=== PATIENT | male | born 1945 | race Caucasian/White ===

== ENCOUNTER 2023-02-05 17:57 | Emergency (ER) | payer MEDICARE, SELFPAY ==
--- NOTE | 2023-02-05 18:02 | ED.GENADULT ---
HPI - General Adult General Chief complaint: Extremity Injury, Lower Stated complaint: Hip pain Source: patient, RN notes reviewed and old records reviewed Mode of arrival: ambulatory Limitations: no limitations History of Present Illness HPI narrative: 77-year-old male presents to [facility] with complaint of right lower buttocks pain this started night. Patient denies injury. patient states pain started after running up and down the stairs carrying heavy bags of salt. patient states pain is worse with sitting and improves with standing.Patient states pain is nonradiating patient states takes gabapentin regularly. And has been using Voltaren gel complaint: hip pain Onset (ago): day(s) (5) Related Data Home Medications Medication Instructions Recorded Confirmed amlodipine 10 mg tablet 10 mg PO DAILY 02/05/23 02/05/23 aspirin 81 mg chewable tablet 81 mg PO DAILY 02/05/23 02/05/23 chlorthalidone 50 mg tablet mg 02/05/23 clopidogrel 75 mg tablet mg 02/05/23 donepezil 5 mg tablet mg 02/05/23 empagliflozin 10 mg tablet mg 02/05/23 (Jardiance) ezetimibe 10 mg tablet mg 02/05/23 gabapentin 300 mg capsule mg 02/05/23 insulin glargine 100 unit/mL (3 unit subcut 02/05/23 mL) subcutaneous pen (Lantus Solostar U-100 Insulin) isosorbide mononitrate 30 mg mg PO 02/05/23 tablet,extended release 24 hr linaclotide 72 mcg capsule mcg 02/05/23 (Linzess) metformin 500 mg tablet,extended mg PO 02/05/23 release 24 hr nebivolol 10 mg tablet mg 02/05/23 pantoprazole 40 mg tablet,delayed mg PO 02/05/23 release rosuvastatin 5 mg tablet mg 02/05/23 tamsulosin 0.4 mg capsule mg PO 02/05/23 valacyclovir 500 mg tablet mg 02/05/23 Allergies Allergy/AdvReac Type Severity Reaction Status Date / Time No Known Allergies Allergy Verified 02/05/23 18:16 Review of Systems Constitutional: Constitutional: Reports no additional constitutional complaints Eyes: Eyes: Reports no additional eye complaints ENT: Reports system reviewed and no additional complaints, except as documented Cardiovascular: Cardiovascular: Reports no additional cardiovascular complaints Respiratory: Respiratory: Reports no additional respiratory complaints Musculoskeletal: Comments: right hip pain Neurologic: Reports system reviewed and no additional complaints, except as documented PMFSH Comments At the time of my signature, I reviewed and agree with the nursing past medical, surgical, social, and family history. There is no relevant family history pertinent to the patient complaint. Exam Const: General: cooperative, healthy appearing, no acute distress and well nourished Nutritional Appearance: well nourished Orientation/consciousness: patient oriented x3 Limitations: no limitations HENMT: Head: normal to inspection and normocephalic Ears: external ears normal, TM's normal bilaterally, mastoids normal and Abnormal EAC present Face/Nose/Sinus: normal facial exam Face and sinus: normal facial exam Mouth: Yes Normal oral and palatal mucosa present, Yes oropharynx normal and Yes moist mucous membranes Throat: posterior oropharynx normal, tonsils normal, uvula midline and no uvular edema Eyes: General: appearance normal, both eyes and all related structures Sclera: sclerae normal Pupils: Equal, round and reactive pupils present Resp: Effort & Inspection: normal respiratory effort, able to speak in complete sentences, no audible wheezes, no cough, no respiratory distress and no retractions Cardio: Rate: regular rate Back/Spine/Pelvis: Back: no CVA tenderness Other: patient with pain and tenderness and right lower buttocks. No erythema, no rash noted pain is reproducible patient has pain with movement. Skin: General skin exam: normal color and no rashes or lesions noted Rashes: no rashes Neuro: General: patient oriented x3 Cranial nerves: Yes Equal, round and reactive pupils present Psych: A
[2023-02-05 18:10] VITALS: BP 146/71; PULSE 73; RESP 18; TEMP 36.5; O2SAT 98
== END 2023-02-05 18:33 | disposition home or self-care (01) ==
PROVIDERS: Emergency Provider Registered Nurse; PCP Internal Medicine
DX: S76.011A Strain of muscle, fascia and tendon of right hip, initial encounter (principal); X50.3XXA Overexertion from repetitive movements, initial encounter; Z79.82 Long term (current) use of aspirin; E78.00 Pure hypercholesterolemia, unspecified; I10 Essential (primary) hypertension; M19.90 Unspecified osteoarthritis, unspecified site; E11.9 Type 2 diabetes mellitus without complications; I25.10 Atherosclerotic heart disease of native coronary artery without angina pectoris; Z95.5 Presence of coronary angioplasty implant and graft
CPT/HCPCS: 99213; G0463

== ENCOUNTER 2023-04-04 09:55 | Emergency (ER) | payer MEDICARE, SELFPAY ==
--- NOTE | 2023-04-04 09:59 | ED.EAR ---
HPI - Ear Problem General Chief complaint: Ear Stated complaint: lt ear discomfort Time Seen by Provider: 04/04/23 09:58 Source: patient Mode of arrival: ambulatory Limitations: no limitations History of Present Illness HPI Narrative: Jad is a 77-year-old male patient presenting to the clinic today with complaints of left ear popping and decreased hearing over a period of time. Does report some nasal congestion. He reports Related Data Home Medications Medication Instructions Recorded Confirmed amlodipine 10 mg tablet 10 mg PO DAILY 02/05/23 02/05/23 aspirin 81 mg chewable tablet 81 mg PO DAILY 02/05/23 02/05/23 chlorthalidone 50 mg tablet mg 02/05/23 clopidogrel 75 mg tablet mg 02/05/23 donepezil 5 mg tablet mg 02/05/23 empagliflozin 10 mg tablet mg 02/05/23 (Jardiance) ezetimibe 10 mg tablet mg 02/05/23 gabapentin 300 mg capsule mg 02/05/23 insulin glargine 100 unit/mL (3 unit subcut 02/05/23 mL) subcutaneous pen (Lantus Solostar U-100 Insulin) isosorbide mononitrate 30 mg mg PO 02/05/23 tablet,extended release 24 hr linaclotide 72 mcg capsule mcg 02/05/23 (Linzess) metformin 500 mg tablet,extended mg PO 02/05/23 release 24 hr nebivolol 10 mg tablet mg 02/05/23 pantoprazole 40 mg tablet,delayed mg PO 02/05/23 release rosuvastatin 5 mg tablet mg 02/05/23 tamsulosin 0.4 mg capsule mg PO 02/05/23 valacyclovir 500 mg tablet mg 02/05/23 Allergies Allergy/AdvReac Type Severity Reaction Status Date / Time No Known Allergies Allergy Verified 04/04/23 10:18 Review of Systems Review of Systems: Pertinent positives per HPI. Patient denies any fever, chills, rash, headache, visual changes, dizziness, cough, shortness of breath, chest pain, palpitations, nausea, vomiting, diarrhea, constipation, abdominal pain, or any urinary issues. PMFSH Comments At the time of my signature, I reviewed and agree with the nursing past medical, surgical, social, and family history. There is no relevant family history pertinent to the patient complaint. Exam Narrative: General: Well-developed, well nourished, in no apparent distress Head: Normocephalic, atraumatic Eyes: Pupils equally round and reactive to light bilaterally, EOM intact, sclera and conjunctive clear, no discharge, lids normal Ears: Right TM intact and clear, left TM intact, bulging, fluid noted behind the TM, ear canals clear, no drainage, grossly hearing normal. Nose: Nares patent, clear nasal discharge, no inflammation, no sinus tenderness. Mouth: Oral pharynx without lesions or masses, good dentition, MMM. Neck: Supple, trachea midline, no enlargement of anterior or posterior cervical nodes, no thyroid masses or goiter palpable. Cardio: Regular rate and rhythm, s1 and s2 normal, no murmur appreciated. Resp: Clear to auscultation bilaterally, no rhonchi, rales, wheezing or rubs Course Course Emergency Course: Portions of this record may have been created with voice recognition software. Level of Care: Express Care Visit Vital Signs Vital signs: Vital signs reviewed Medical Decision Making MDM Narrative Medical decision making narrative: At the time of visit patient is resting comfortably on the exam table. Patient appears to be nontoxic. Plan: I suspect patient has eustachian tube dysfunction/serous otitis of the left ear. Will send in prescription for prednisone. Recommend follow-up with his PCP/ENT if symptoms persist. Supportive measures were discussed with the patient and they voiced understanding discharge instructions and agrees to treatment plan. Return precautions reviewed Differential Diagnosis Differential Diagnosis: Otitis media, otitis externa, eustachian tube dysfunction, upper respiratory infection, cerumen impaction, serous otitis. Discharge Plan Discharge Clinical Impression: Acute serous otitis media Qualifiers: Laterality: left Recurrence: non-recurrent Qualified Code(s): H6
[2023-04-04 10:18] VITALS: BP 137/77; PULSE 71; RESP 16; TEMP 36.1; O2SAT 100
[2023-04-04 10:21] VITALS: BP 137/77; PULSE 71; RESP 16; TEMP 36.1; O2SAT 100
== END 2023-04-04 10:34 | disposition home or self-care (01) ==
PROVIDERS: Emergency Provider Nurse Practitioner Family; PCP Internal Medicine
DX: H65.02 Acute serous otitis media, left ear (principal); H69.92 Unspecified Eustachian tube disorder, left ear; E78.00 Pure hypercholesterolemia, unspecified; I10 Essential (primary) hypertension; E11.9 Type 2 diabetes mellitus without complications; M19.90 Unspecified osteoarthritis, unspecified site; Z95.5 Presence of coronary angioplasty implant and graft
CPT/HCPCS: 99213; G0463

== ENCOUNTER 2024-06-21 09:05 | Emergency (ER) | payer MEDICARE, SELFPAY ==
--- NOTE | 2024-06-21 09:07 | ED_ITS ---
HPI - URI/Sore Throat General Chief Complaint: Upper Respiratory Infection Stated Complaint: pink eye Time Seen by Provider: 06/21/24 09:06 Source: patient Mode of arrival: ambulatory Limitations: no limitations History of Present Illness HPI Narrative: Jad is a 78-year-old male patient presenting to the clinic today with complaints of a possible pinkeye to the left eye. He also reports he has had some nasal drainage for the past couple months. Denies any fevers, chills, or body aches. Has tried taking DayQuil and NyQuil for his symptoms. States his grandson came over to the house and had pinkeye and he laid with his grandson. States he developed itchiness and drainage in the left eye last night and the eye was matted shut when he got up this morning. Reports that the drainage is yellow. Related Data Home Medications ?Medication ?Instructions ?Recorded ?Confirmed ?Last Taken ?Type amlodipine 10 mg tablet 10 mg PO DAILY 02/05/23 02/05/23 Unknown History aspirin 81 mg chewable tablet 81 mg PO DAILY 02/05/23 02/05/23 Unknown History chlorthalidone 50 mg tablet mg 02/05/23 Unknown History clopidogrel 75 mg tablet mg 02/05/23 Unknown History donepezil 5 mg tablet mg 02/05/23 Unknown History empagliflozin 10 mg tablet mg 02/05/23 Unknown History (Jardiance) ezetimibe 10 mg tablet mg 02/05/23 Unknown History gabapentin 300 mg capsule mg 02/05/23 Unknown History insulin glargine 100 unit/mL (3 unit subcut 02/05/23 Unknown History mL) subcutaneous pen (Lantus Solostar U-100 Insulin) isosorbide mononitrate 30 mg mg PO 02/05/23 Unknown History tablet,extended release 24 hr linaclotide 72 mcg capsule mcg 02/05/23 Unknown History (Linzess) metformin 500 mg tablet,extended mg PO 02/05/23 Unknown History release 24 hr nebivolol 10 mg tablet mg 02/05/23 Unknown History pantoprazole 40 mg tablet,delayed mg PO 02/05/23 Unknown History release rosuvastatin 5 mg tablet mg 02/05/23 Unknown History tamsulosin 0.4 mg capsule mg PO 02/05/23 Unknown History valacyclovir 500 mg tablet mg 02/05/23 Unknown History Allergies Allergy/AdvReac Type Severity Reaction Status Date / Time No Known Allergies Allergy Verified 06/21/24 09:16 Review of Systems Review of Systems: Pertinent positives per HPI. Patient denies any fever, chills, rash, headache, visual changes, dizziness, cough, shortness of breath, chest pain, palpitations, nausea, vomiting, diarrhea, constipation, abdominal pain, or any urinary issues. PMFSH Comments At the time of my signature, I reviewed and agree with the nursing past medical, surgical, social, and family history. There is no relevant family history pertinent to the patient complaint. Exam Narrative: General: Well-developed, well nourished, in no apparent distress Head: Normocephalic, atraumatic Eyes: Pupils equally round and reactive to light bilaterally, EOM intact, right sclera and conjunctive clear, left sclera and conjunctiva mildly injected, no obvious discharge at this time, lids normal Ears: TMs intact and clear, ear canals clear, no drainage, grossly hearing normal. Nose: Nares patent, clear nasal discharge, no inflammation, no sinus tenderness. Mouth: Oral pharynx without lesions or masses, good dentition, MMM. Neck: Supple, trachea midline, no enlargement of anterior or posterior cervical nodes, no thyroid masses or goiter palpable. Cardio: Regular rate and rhythm, s1 and s2 normal, no murmur appreciated. Resp: Clear to auscultation bilaterally, no rhonchi, rales, wheezing or rubs Course Course Emergency Course: Portions of this record may have been created with voice recognition software. Level of Care: Express Care Visit Vital Signs Vital signs: Vital signs reviewed MDM - URI/Sore Throat MDM Narrative Medical decision making narrative: At the time of visit patient is resting comfortably on the exam table. Patient appears to be nontoxic. Plan: Will treat patient for left conjunctivitis and given prescription for ofloxacin eyedrops. Patient also has allergic rhinitis. Supportive measures were discussed with the patient and they voiced understanding discharge instructions and agrees to treatment plan. Return precautions reviewed Differential Diagnosis Differential diagnosis: Likely upper respiratory infection, otitis media, sinusitis, viral infection, bronchitis, influenza, pharyngitis and other (COVID, conjunctivitis) Discharge Plan Discharge Clinical Impression: Allergic rhinitis Qualifiers: Allergic rhinitis trigger: unspecified Allergic rhinitis seasonality: non- seasonal Qualified Code(s): J30.89 - Other allergic rhinitis Conjunctivitis Qualifiers: Conjunctivitis type: acute Acute conjunctivitis type: unspecified Laterality: left Qualified Code(s): H10.32 - Unspecified acute conjunctivitis, left eye Patient Disposition: Home Condition: Stable Instructions: Antibiotic Form, Allergies (ED), Conjunctivitis (ED) Additional Instructions: Allergic rhinitis discharge instructions: Increase fluids and stay well hydrated Tylenol/motrin for pain/fever Flonase and OTC antihistamines as directed Vicks vapor rub to open sinuses Sinus rinses for congestion Cepacol spray, cough drops, throat lozenges, warm tea with honey/lemon, gargle salt water to soothe throat BRAT diet for diarrhea Clear liquids x 24 hours then advance as tolerated for nausea/vomiting Go to the ED if you develop a worsening in your condition- high fever not controlled by Tylenol or Motrin, dehydration, weakness, lethargy, shortness of breath, or chest pain. Follow up with your PCP in 3-5 days if symptoms persist. Conjunctivitis discharge instructions: Conjunctivitis is considered contagious for 24 hours while on the antibiotic. Practice good hand washing techniques Avoid touching eyes Instill eyedrops as prescribed-ofloxacin May use warm moist washcloth to help remove eye discharge If eyes are matted shut-do not pry eyes open-use a warm moist cloth to loosen matting and wipe matter away from eye May take Tylenol/Motrin as needed for pain or fever May take Benadryl as needed for itching Follow-up with your PCP in 3-5 days if symptoms persist or sooner if they worsen Go to the emergency room if you develop any fever that is not controlled by Tylenol or Motrin, loss of vision, eye pain, increase eye swelling,visual changes, headache, confusion, lethargy, weakness, chest pain, or shortness of breath. Patient Language: Dominican Prescriptions: New ofloxacin 0.3 % drops 1 drp LEFT EYE QID 7 Days Qty: 5 0RF No Action prednisone 20 mg tablet 40 mg PO DAILY 5 Days Qty: 10 0RF donepezil 5 mg tablet isosorbide mononitrate 30 mg tablet extended release 24 hr PO clopidogrel 75 mg tablet chlorthalidone 50 mg tablet valacyclovir 500 mg tablet tamsulosin 0.4 mg capsule PO amlodipine 10 mg tablet 10 mg PO DAILY pantoprazole 40 mg tablet,delayed release (DR/EC) PO gabapentin 300 mg capsule aspirin 81 mg Tablet,Chewable 81 mg PO DAILY metformin 500 mg tablet extended release 24 hr PO ezetimibe 10 mg tablet rosuvastatin 5 mg tablet insulin glargine [Lantus Solostar U-100 Insulin] 100 unit/mL (3 mL) insulin pen SUBCUT nebivolol 10 mg tablet Jardiance 10 mg tablet Linzess 72 mcg capsule cyclobenzaprine 5 mg tablet 5 mg PO TID PRN (Reason: muscle spasm) Qty: 12 0RF naproxen 500 mg tablet 500 mg PO BID Qty: 6 0RF Follow-up/Referrals: Cecil,James Evans MD [Primary Care Provider] - Time of Disposition: 09:24 Quality NIHSS Nursing Documentation ED NIHSS nursing documentation: reviewed/agree
--- OUTSIDE RECORDS SUMMARY | 2024-06-21 09:08 | XMS_ITS | Encounter Summary ---
Author Organization [facility] Address [address] [place] [address] Phone Care Team Providers Care Tool Checker Name Role Phone James Jacob MD Primary Care Provider [phone] Encounter Details Date Type Department Care Team (Late st Contact Info) Description 10/25/2023 E-Visit [facility] Endocrinology Metabolism and Lipid [address] [facility] [address], [address] [place] [address] Niru Myles MD [facility]ly [facility] [place] [address] Check sensor Social History Tobacco Use Types Packs/Day Years Used Date Smoking Tobacco: Former Cigarettes 1978 Smokeless Tobacco: Never Alcohol Use Standard Drinks/Week Comments Not Currently 0 (1 standard drink = 0.6 oz pur e alcohol) AUDIT-C Answer Date Recorded Q1: How often do you have a drink containing alcohol? Never 12/08/2022 Q2: How many drinks containi ng alcohol do you have on a typical day when you are drinking? Patient does not drink Q3: How often do you have si x or more drinks on one occasion? Never 12/08/2022 Personal Safety Answer Date Recorded Have you ever been in or are you currently in a harmful physical or emotional relationship or is someone making you feel afraid or unsafe? Denies 12/08/2022 Sex and Gender Information Value Date Recorded Sex Assigned at Not on file Legal Sex Male 1:22 AM [employer] Gender Identity Male 01/16/2023 5:56 PM [employer] Sexual Orientation Not on file documented as of this encounter Plan of Treatment Scheduled Procedures Name Priority Associated Diagnoses Date/Ti me COLONOSCOPY History of colon polyps COLONOSCOPY Diarrhea, unspecified type Constipation, unspecified constipation type documented as of this encounter Visit Diagnoses Not on filedocumented in this encounter Care Teams Tool Checker Relationship Specialty Start Date End Date James Jacob MD [address] [address] PCP - General 06/26/16 documented as of this encounter
--- OUTSIDE RECORDS SUMMARY | 2024-06-21 09:08 | XMS_ITS | Referral Summary ---
Author Organization [facility] Address [address] [place] [address] Care Team Providers Care Knockup Worker Name Role Phone James Jacob MD Primary Care Provider [phone] Encounters Date Type Department Care Team Description 05/09/2024 11:00 AM CDT Office Visit [facility] Endocrinology Metabolism and Lipid [address] [place] [address] Medical Office Building [address], [address] [place] [phone] Niru Myles MD Alzheimer's dementia without behavioral disturbance, psychotic disturbance, mood disturbance, or anxiety, unspecified dementia severity, unspecified timing of dementia onset (HCC) (Primary Dx); Type 2 diabetes mellitus treated with insulin (HCC); Amyloidosis, unspecified type (HCC); Type 2 diabetes mellitus with other specified complication, with long-term current use of insulin (HCC) 04/23/2024 Results Follow-Up [facility] Endocrinology Metabolism and Lipid [facility] [facility] 5th [place] [address] [place] [phone] Niru Myles MD 04/10/2024 10:27 AM SECTION PLOTTER OPERATOR - 04/10/2024 11:59 PM SECTION PLOTTER OPERATOR Hospital Encounter [facility] Cardiac Diagnostic Lab [address] [facility] 8th [place] [phone] PFO (patent foramen ovale) Discharge Disposition: Discharge to home or self care 04/10/2024 11:45 AM SECTION PLOTTER OPERATOR Office Visit [facility] Cardiology [address] [facility] 8th [place] [address] [place] [phone] Allyssa Amanda MD Coronary artery disease of [place] artery of [place] heart with stable angina pectoris (Primary Dx); PFO (patent foramen ovale); Essential hypertension from Last 3 Months Allergies No known active allergies Medications simethicone (MYLICON,GAS-X ) 125 mg capsule Take 1 capsule (125 mg total) by mouth daily as needed Active acetaminophen (TYLENOL) 500 mg tablet Take 2 tablets (1,000 mg total) by mouth nightly Active MULTIVITAMIN ORAL Take 1 Dose by mouth daily Active FreeStyle Karli 3 [place] misc as directed 01/16/20 23 Active blood glucose diagnostic (glucose blood) stripIndicatio ns:Type 2 diabetes mellitus treated with insulin ([facility]) Check blood sugar three times a day or as directed 300 each 3 05/16/19 24 Active lancets miscIndication s:Type 2 diabetes mellitus treated with insulin ([facility]) Use to check glucose 3 times per day 300 each 3 05/16/19 24 Active nitroglycerin (NITROSTAT) 0.[address] 1 tablet (0.4 mg total) under the tongue every 5 (five) minutes as needed for chest pain 75 tablet 3 05/25/19 24 Active Lactobac 2-Bifido 1-S. therm 112.5 billion cell capsule Take by mouth Active empagliflozin (Jardiance) 25 mg tablet Take 1 tablet (25 mg total) by mouth daily 90 tablet 3 07/06/19 24 2024 Active ergocalciferol (VITAMIN D) 50,000 unit capsule Take 1 capsule (50,000 Units total) by mouth once a week 12 capsule 3 07/06/19 24 2024 Active isosorbide mononitrate ER (IMDUR) 60 mg 24 hr tablet Take 1 tablet (60 mg total) by mouth daily 90 tablet 3 08/01/19 24 2024 Active metFORMIN XR (GLUCOPHAGE XR) 500 mg 24 hr tablet Take 2 tablets (1,000 mg total) by mouth 2 (two) times a day 360 tablet 3 11/09/19 24 Active blood-glucose sensor deviceIndicati ons:Type 2 diabetes mellitus treated with insulin ([facility]) Freestyle Karli 3 Plus Sensors. Use with Freestyle Karli System to continuously monitor glucose. Change Sensor every 15 days. 6 each 3 02/12/20 24 Active chlorthalidone (HYGROTON) 50 mg tablet TAKE 1 TABLET DAILY 90 tablet 3 02/25/20 24 Active amLODIPine (NORVASC) 10 mg tablet TAKE 1 TABLET DAILY 90 tablet 3 02/25/20 24 Active ezetimibe (ZETIA) 10 mg tablet TAKE 1 TABLET DAILY 90 tablet 3 02/25/20 24 Active nebivoloL (BYSTOLIC) 10 mg tablet TAKE 1 TABLET DAILY 90 tablet 3 02/25/20 24 Active gabapentin (NEURONTIN) 300 mg capsule TAKE 1 CAPSULE NIGHTLY 90 capsule 1 03/17/19 25 Active tamsulosin (FLOMAX) 0.4 mg extended release capsule TAKE 2 CAPSULES(0.8MG TOTAL) DAILY 180 capsule 1 03/17/[address] (PROTONIX) 40 mg EC tablet TAKE 1 TABLET DAILY 90 tablet 1 03/17/19 25 Active insulin glargine (LANTUS) 100 unit/mL (3 mL) pen for injectionIndic ations:Type 2 diabetes mellitus treated with insulin ([facility]) Inject 26 Units under the skin daily 25 mL 3 05/10/19 25 2025 Active insulin lispro (HumaLOG) 100 unit/mL pen for injection Inject 3 Units under the skin daily before dinner Add sliding scales for high BG 6 mL 3 05/10/19 25 2025 Active rosuvastatin (CRESTOR) 20 mg tablet Take 1 tablet (20 mg total) by mouth daily 90 tablet 3 05/10/19 25 2025 Active clopidogreL (PLAVIX) 75 mg tablet TAKE 1 TABLET BY MOUTH DAILY GENERIC EQUIVALENT FOR PLAVIX 90 tablet 2 06/12/19 25 Active pen needle, diabetic (BD Ultra-Fine Kelin Pen Needle) 32 gauge x 5/32 needleIndicati ons:Type 2 diabetes mellitus treated with insulin ([facility]) USE TO INJECT INSULIN UP TO 4 TIMES A DAY 360 each 06/11/19 25 Active pen needle, diabetic (BD Ultra-Fine Kelin Pen Needle) 32 gauge x 5/32 needleIndicati ons:Type 2 diabetes mellitus treated with insulin ([facility]) USE TO INJECT INSULIN UP TO 4 TIMES A DAY 360 each 11/28/19 23 2024 Discontinued(R eorder) clopidogreL (PLAVIX) 75 mg tablet TAKE 1 TABLET BY MOUTH DAILY GENERIC EQUIVALENT FOR PLAVIX 90 tablet 2 09/10/19 24 2024 Discontinued Active Problems Problem Noted Date Diagnosed Date Alzheimer's dementia without behavioral disturbance, psychotic disturbance, mood disturbance, or anxiety, unspecified dementia severity, unspecified timing of dementia onset 05/09/2024 GERD (gastroesophageal reflux disease) 4 Diarrhea 06/29/2022 Abnormal cardiovascular stress test 11/15/2021 Overview (11/15/2021): Added automatically from request for surgery [id number] Diabetic neuropathy 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 05/03/2021 Internal hemorrhoids 12/30/2020 Low back pain 06/01/2020 Assessment & Plan (06/01/2020 11:32 AM CDT): Will try gabapentin at hs Memory loss 06/01/2020 Calculus of gallbladder with out cholecystitis without obstruction 01/30/2020 Overview (01/30/2020): Added automatically from request for surgery [id number] Suspected COVID-19 virus infection 09/08/2019 Assessment & Plan (09/08/2019 5:55 PM CDT): C/o chest pain, chills, diarrhea. COVID negative x 1 in ED. Requires repeat per IP. WBC 14, D-dimer 700. CXR w/ clear lungs. - repeat swab 09/08 at 1230 - add on RVP - supportive care Electrolyte abnormality 09/08/2019 Assessment & Plan (09/08/2019 5:48 PM CDT): Na 132, K 3.0 on admission. S/p KCl 80 mEq in ED. Likely 2/2 reported diarrhea. - check mag and phos - repeat BMP in AM BPH (benign prostatic hyperplasia) 09/08/2019 Assessment & Plan (10/12/2023 11:55 AM CDT): Check psa Assessment & Plan (09/08/2019 5:48 PM CDT): - cont home tamsulosin Chronic fatigue 04/08/2018 Cobalamin deficiency 03/21/2017 Type 2 diabetes mellitus wit h chronic kidney disease, without long-term current use of insulin 09/21/2016 Assessment & Plan (10/12/2023 11:55 AM CDT): a1c Angina pectoris 03/25/2015 Assessment & Plan (10/12/2023 11:55 AM CDT): To call cardiology Assessment & Plan (09/08/2019 5:42 PM CDT): Presents with L sided pressure-like chest pain that began at 0400 this AM w/ ambulation. Took ASA and 2 SL nitro at home w/o relief. Hx CAD s/p stents x 5. Also reports episode of L arm numbness yesterday. Given ASA and morphine in ED. - EKG w/ NSR and nonspecific T wave abnormality - Trop negative x 2 - Telemetry - TTE in AM, consider stress test when cleared from COVID CAD (coronary artery disease) 09/21/2014 Assessment & Plan (10/12/2023 11:55 AM CDT): To call cardiology Assessment & Plan (09/08/2019 5:42 PM CDT): S/p stents x 5. - cont home ASA and statin Stented coronary artery 07/15/2014 Overview (07/06/2023): drug eluting x3 to RCA Palpitations 03/19/2012 Amyloidosis 05/29/2011 Type 2 diabetes mellitus 11/22/2010 Assessment & Plan (09/08/2019 5:47 PM CDT): Home regimen: lantus 46 units nightly, humalog 5 units as needed (pt states for larger meals), ezetimibe 10mg daily, metformin 1g BID - hold oral meds - dose reduce lantus to 37 units. MDSSI. - DM diet High blood cholesterol 11/22/2010 Assessment & Plan (10/12/2023 11:55 AM CDT): stable Assessment & Plan (09/08/2019 5:43 PM CDT): - cont home statin HTN (hypertension), benign 11/22/2010 Assessment & Plan (10/12/2023 11:55 AM CDT): Bp at target Assessment & Plan (09/08/2019 5:48 PM CDT): - cont home amlodipine, nebivolol, chlorthalidone PFO (patent foramen ovale) 09/29/2009 Stroke 09/27/2009 Immunizations Immunization Administration Dates Next Due Influenza, Quad, Adjuvantate d, Intramuscular 01/04/2021 Influenza, Quadrivalent, Hig h Dose, Preservative Free, Intrr 11/28/2022,12/08/2019 Influenza, Quadrivalent, Rec ombinant, Egg Free, Preservative Free, Intramuscular 12/10/2018 Influenza, Trivalent, Adjuva nted, Intramuscular 12/24/2023 Influenza, Trivalent, High D ose, Split, Preservative Free, Intramuscular 11/06/2017,12/06/2016,12/09/2014,12/09,12/04/2012 Influenza, Trivalent, Preser vative Free, Intramuscular 02/26/2009 Pfizer SARS-CoV-2 Monovalent Vaccination (12+ Yrs) PURPLE 05/02/2020,04/04/2020 Pneumococcal Conjugate PCV 13 12/06/2016 Pneumococcal Polysaccharide PPV23 12/10/2018, RSV, Bivalent, Protein Subun it Rsvpref, Diluent (Abrysvo) 01/18/2024 Tdap 11/06/2017 ZOSTER Recombinant 03/11/2019,12/10/2018 Social History Tobacco Use Types Packs/Day Years Used Date Smoking Tobacco: Former Cigarettes 1 4 - 1978 Smokeless Tobacco: Never Tobacco Cessation:Counseling Given: Not Answered Alcohol Use Standard Drinks/Week Comments Not Currently [...] on file Legal Sex Male 1:22 AM SECTION PLOTTER OPERATOR Gender Identity Male 01/16/2023 5:56 PM SECTION PLOTTER OPERATOR Sexual Orientation Not on file Last Filed Vital Signs Vital Sign Reading Time Taken Comments Blood Pressure 112/62 05/09/2024 10:42 AM CDT Pulse 85 05/09/2024 10:42 AM CDT Temperature 36.4 C (97.6 F) 05/09/2024 10:42 AM CDT Respiratory Rate 16 12/08/2022 10:35 AM CDT Oxygen Saturation 94% 04/10/2024 11:33 AM SECTION PLOTTER OPERATOR Inhaled Oxygen Concentration - - Weight 65.4 kg (144 lb 3.2 oz) 05/09/2024 10:42 AM CDT Height 175.3 cm (5' 9.02 ) 05/09/2024 10:42 AM C DT Body Mass Index 21.28 05/09/2024 10:42 AM CDT Plan of Treatment Scheduled Procedures Name Priority Associated Diagnoses Date/Ti me COLONOSCOPY History of colon polyps COLONOSCOPY Diarrhea, unspecified type Constipation, unspecified constipation type Medical Devices Implanted Type Area Repeater Chief Device Identifier Shelf Expiration Date Model / Serial / Lot [employer] Stent Coronary De Rx Cocr Ors Msn 3.5x26mm [id number] - [id number] - [id number] Implanted:Qty : 1 on 11/18/2021 by Jonathan Marques MD at [facility] Stent N/A: Anterior Descending Cornary Artery [employer] 12/22/2022 [id number] / [id number] / [id number] [employer] Stent Coronary De Rx Cocr Ors Msn 4.0x26mm [id number] - [id number] - [id number] Implanted:Qty : 1 on 11/18/2021 by Jonathan Marques MD at [facility] Stent Right: Coronary Artery [employer] 02/14/2023 [id number] / [id number] / [id number] Procedures Procedure Name Priority Date/Time Associated Diagnosis Comments VITAMIN D 25 HYDROXY Routine 04/21/2024 9:25 AM SECTION PLOTTER OPERATOR Vitamin D deficiency CBC WITH AUTO DIFFERENTIAL Routine 04/21/2024 9:25 AM SECTION PLOTTER OPERATOR Type 2 diabetes mellitus with other specified complication, with long-term current use of insulin (HCC) ALBUMIN CREATININE RATIO, URINE Routine 04/21/2024 9:25 AM SECTION PLOTTER OPERATOR Type 2 diabetes mellitus with other specified complication, with long-term current use of insulin (HCC) HEMOGLOBIN A1C Routine 04/21/2024 9:25 AM SECTION PLOTTER OPERATOR Type 2 diabetes mellitus with other specified complication, with long-term current use of insulin (HCC) COMPREHENSIVE METABOLIC PANEL Routine 04/21/2024 9:25 AM SECTION PLOTTER OPERATOR Type 2 diabetes mellitus with other specified complication, with long-term current use of insulin (HCC) LIPID PANEL Routine 04/21/2024 9:25 AM SECTION PLOTTER OPERATOR Mixed hyperlipidemia TRANSTHORACIC ECHO (TTE) COMPLETE W DOPPLER/CF WO CONTRAST W BUBBLE Routine 04/10/2024 11:33 AM SECTION PLOTTER OPERATOR PFO (patent foramen ovale) COLONOSCOPY 07/14/2022 10:[address] ABDOMEN PELVIS W CONTRAST Routine 11/17/2013 3:24 PM CDT from Last 3 Months or Most Recently Relevant to Health Maintenance Results * (ABNORMAL) CBC with auto differential (04/21/2024 9:25 AM SECTION PLOTTER OPERATOR) WBC 10.1 3.4 - 10.8 x10E3/uL [facility] - 01 RBC 6.02(H) 4.14 - 5.80 x10E6/uL [facility] - 01 Hgb 17.1 13.0 - 17.7 g/dL [facility] - 01 Hct 51.7(H) 37.5 - 51.0 % [facility] - 01 MCV 86 79 - 97 fL [facility] - 01 MCH 28.4 26.6 - 33.0 pg [facility] - 01 MCHC 33.1 31.5 - 35.7 g/dL [facility] - 01 Rdw 14.5 11.6 - 15.4 % [facility] - 01 Platelets 264 150 - 450 x10E3/uL [facility] - 01 Neutrophils pct 71 Not Estab. % [facility] - 01 Lymphs pct 21 Not Estab. % [facility] - 01 Monocytes pct 6 Not Estab. % [facility] - 01 Eosinophils pct 1 Not Estab. % [facility] - 01 Basophil pct 1 Not Estab. % [facility] - 01 Neutrophil abs 7.2(H) 1.4 - 7.0 x10E3/uL [facility] - 01 Lymphs (Absolute) 2.1 0.7 - 3.1 x10E3/uL [facility] - 01 Monocyte abs 0.6 0.1 - 0.9 x10E3/uL [facility] - 01 Eosinophils, abs 0.1 0.0 - 0.4 x10E3/uL [facility] - 01 Basophils, abs 0.1 0.0 - 0.2 x10E3/uL [facility] - 01 Immature Granulocytes 0 Not Estab. % [facility] - 01 Immature Grans (Abs) 0.0 0.0 - 0.1 x10E3/uL [facility] - 01 Blood 04/21/2024 9:25 AM SECTION PLOTTER OPERATOR 04/21/2024 Narrative [facility] - 04/22/2024 7:09 AM SECTION PLOTTER OPERATOR Performed at: - [facility] [address] [id number] [place]: Jorge Flowers PhD, Phone: [phone] us Niru Myles MD LAB BLOOD ORDERABLES Final Re sult [facility] - 01 * (ABNORMAL) Albumin Creatinine Ratio, Urine (04/21/2024 9:25 AM SECTION PLOTTER OPERATOR) Creatinine ur 90.2 Not Estab. mg/dL [facility] - 01 Microalbumin, ur 132.1 Not Estab. ug/mL [facility] - 01 Microalbumin/cr eat ratio 146(H) 0 - 29 mg/g creat [facility] - 01 Comment: Normal: 0 - 29 Moderately increased: 30 - 300 Severely increased: >300 Urine 04/21/2024 9:25 AM SECTION PLOTTER OPERATOR 04/21/2024 Narrative [facility] - 04/22/2024 3:09 PM SECTION PLOTTER OPERATOR Performed at: - [facility] [id number] [place]: Jorge Flowers PhD, Phone: [phone] Niru Myles MD LAB URINE ORDERABLES Final [facility] * Vitamin D 25 hydroxy (04/21/2024 9:25 AM SECTION PLOTTER OPERATOR) Vitamin D, 25-Hydroxy 73.5 30.0 - 100.0 ng/mL [facility] - 01 Comment: Vitamin D deficiency has been defined by the [place] of [employer] and an Endocrine Society practice guideline as a level of serum 25-OH vitamin D less than 20 ng/mL (1,2). The Endocrine Society went on to further define vitamin D insufficiency as a level between 21 and 29 ng/mL (2). 1. IOM ([place] of [employer]). 2010. Dietary reference intakes for calcium and D. [place]: The National Academies Press. 2. Rolando MF, David NC, Karis LEE, et al. Evaluation, treatment, and prevention of vitamin D deficiency: an Endocrine Society clinical practice guideline. JCEM. 2010; 96(7):1911-30. Blood 04/21/2024 9:25 AM SECTION PLOTTER OPERATOR 04/21/2024 Narrative [facility] - 04/22/2024 7:09 AM SECTION PLOTTER OPERATOR Performed at: [facility] [id number] [place]: Jorge Flowers PhD, Phone: [phone] Niru Myles MD LAB BLOOD ORDERABLES Final Re sult Performing Organization Address [facility] Co de Phone Number [facility] - 01 * (ABNORMAL) Hemoglobin A1c (04/21/2024 9:25 AM SECTION PLOTTER OPERATOR) Pathologist [facility] Hgb A1C 6.5(H) 4.8 - 5.6 % [facility] - 01 Comment: Prediabetes: 5.7 - 6.4 Diabetes: >6.4 Glycemic control for adults with diabetes: <7.0 Blood 04/21/2024 9:25 AM SECTION PLOTTER OPERATOR 04/21/2024 Narrative [facility] - 04/22/2024 7:09 AM SECTION PLOTTER OPERATOR Performed at: [address] [place], [place] [id number] [place]: Jroge Flowers PhD, Phone: [phone] Niru Myles MD LAB BLOOD ORDERABLES Final Re sult Performing Organization Address [facility] de Phone Number [facility] - 01 * Lipid panel (04/21/2024 9:25 AM SECTION PLOTTER OPERATOR) [facility] Cholesterol 154 100 - 199 mg/dL [facility] - 01 Triglycerides 137 0 - 149 mg/dL [facility] - 01 HDL Cholesterol 46 >39 mg/dL [facility] - 01 VLDL 24 5 - 40 mg/dL [facility] - 01 LDL, calculated 84 0 - 99 mg/dL [facility] - 01 Blood 04/21/2024 9:25 AM SECTION PLOTTER OPERATOR 04/21/2024 Narrative [facility] - 04/22/2024 7:09 AM SECTION PLOTTER OPERATOR Performed at: [address] [id number] [place]: Jorge Flowers PhD, Phone: [phone] Niru Myles MD LAB BLOOD ORDERABLES Final Re sult Performing Organization Address [facility] Co de Phone Number [facility] - 01 * (ABNORMAL) Comprehensive metabolic panel (04/21/2024 9:25 AM SECTION PLOTTER OPERATOR) [facility] Glucose 161(H) 70 - 99 mg/dL [facility] - 01 BUN 13 8 - 27 mg/dL [facility] - 01 Creatinine, Serum 1.04 0.76 - 1.27 mg/dL [facility] - 01 eGFR 74 >59 mL/min/1.7 3 [facility] - 01 BUN/creat ratio 13 10 - 24 [facility] - 01 Sodium 137 134 - 144 mmol/L [facility] - 01 Potassium, sr 3.4(L) 3.5 - 5.2 mmol/L [facility] - 01 Chloride 94(L) 96 - 106 mmol/L [facility] - 01 CO2 27 20 - 29 mmol/L [facility] - 01 Calcium 10.2 8.6 - 10.2 mg/dL [facility] - 01 Protein, sr 7.1 6.0 - 8.5 g/dL [facility] - 01 Albumin 4.6 3.8 - 4.8 g/dL [facility] - 01 Globulin, Total 2.5 1.5 - 4.5 g/dL [facility] - 01 Bilirubin, Total 0.7 0.0 - 1.2 mg/dL [facility] - 01 Alk phos 59 44 - 121 IU/L [facility] - 01 AST 18 0 - 40 IU/L [facility] - 01 ALT 18 0 - 44 IU/L [facility] - 01 Blood 04/21/2024 9:25 AM SECTION PLOTTER OPERATOR 04/21/2024 Narrative [facility] - 04/22/2024 7:09 AM SECTION PLOTTER OPERATOR Performed at: [address] [id number] [place]: Jorge Flowers PhD, Phone: [phone] us Niru Myles MD LAB BLOOD ORDERABLES Final Re sult [facility] - 01 * TRANSTHORACIC ECHO (TTE) COMPLETE W DOPPLER/CF WO CONTRAST W BUBBLE (04/10/2024 11:33 AM SECTION PLOTTER OPERATOR) Anatomical Region Laterality Modality Ultrasound 04/10/2024 10:3 3 AM SECTION PLOTTER OPERATOR Narrative 04/10/2024 12:00 PM SECTION PLOTTER OPERATOR [facility] Cardiac Diagnostic [place] [address] Transthoracic Echocardiographic Report Patient Name: JAD CERNA W : 1945 (78y 4m) Gender: M Study Date: 04/10/2024 10:33:51 AM Ht(Inch): 69 Wt(Lb): 147.93 BSA: 1.81 Cigarette Maker: TARAH Mccracken Location: [facility] Order Provider: ALLYSSA AMANDA Heart Rate: 68 BMI: 21.84 BP: 134 / 77 Quality: The study images were of technically adequate quality. Ref Provider: ALLYSSA AMANDA PROCEDURES: Echocardiographic Report: ([id number]) Transthoracic complete echo, 2D, spectral and tissue Doppler, color flow Doppler, M-mode. Additional Procedures: Agitated saline bubble study. INDICATIONS: Q21.12 Patent foramen ovale. FINDINGS: Left Ventricle: The left ventricle is small based on volume index. Concentric LV remodeling. Normal left ventricular systolic function. The Ejection Fraction (Esteban's) is measured at 59 %. Left ventricular diastolic parameters are consistent with normal diastolic function. The LV global strain is: -17.9 %. Right Ventricle: Normal right ventricular size. Left Atrium: The left atrium is normal in size. Right Atrium: The right atrium is normal in size. Atrial Septum: Agitated saline bubble study is negative for intracardiac shunt. color flow Doppler shows no residual flow across the device. Mitral Valve: Normal mitral valve leaflet structure. Aortic Valve: No aortic valve stenosis. The mean transaortic gradient is 2.47 mmHg. The aortic valve area by the continuity equation (using VTI) is 2.14 cm2. Tricuspid Valve: The tricuspid valve demonstrates normal leaflet structure. Pulmonic Valve: The pulmonic valve demonstrates normal leaflet structure. Aorta: Normal aortic root. CONCLUSIONS: 1. Concentric LV remodeling. Normal left ventricular systolic function. The Ejection Fraction (Estbean's) is measured at 59 %. Left ventricular diastolic parameters are consistent with normal diastolic function. 2. Normal right ventricular size. 3. Agitated saline bubble study is negative for intracardiac shunt. color flow Doppler shows no residual flow across the device. 4. There is no significant valvular heart disease. MEASUREMENTS: 2D/MM Value Range Doppler Value Range LVIDd 2D 3.33 cm [ 4.20 - 5.80 ] AV Peak Fady 1.04 m/s [ 1.00 - 1.70 ] LVIDs 2D 2.25 cm [ 2.50 - 4.00 ] AV Peak PG 4.33 IVSd 2D 1.07 cm [ 0.60 - 1.00 ] AV Mean PG 2.47 mmHg LVPWd 2D 0.95 cm [ 0.60 - 1.00 ] AV VTI 24.25 cm LV Thickness Ratio 1.13 LVOT Peak Fady 0.79 m/s [ 0.70 - 1.10 ] LV FS 2D 32.39 % [ 25.00 - 43.00 ] LVOT Peak PG 2.50 LV Mass 2D 98.46 g LVOT Mean PG 1.11 mmHg LV Mass Index 2D 54.40 g/m2 LVOT VTI 17.41 cm RWT 0.57 LVOT Diam 1.95 cm EDV Mod BP 48.32 ml [ 62.00 - 150.00 ] ZARINA VTI 2.14 cm2 LV EDV Index 26.70 ml/m2 LVOT/AV VTI 0.72 - Dimensionless index (DVI) ESV Mod BP 19.86 ml [ 21.00 - 61.00 ] MV E Peak Fady 0.55 m/s [ 0.60 - 1.30 ] EF Mod BP 59 % [ 52 - 72 ] MV A Peak Fady 0.73 m/s [ 1.00 - 1.20 ] LV GLS -17.9 % [ -18.0 - -16.0 ] MV E/A 0.76 ratio [ 0.80 - 1.50 ] LA Length 2C 5.80 cm MV Decel Time 222.18 msec [ 104.00 - 258.00 ] LA Length 4C 4.15 cm Med E` Fady 6.21 cm/sec [ 8.00 - 15.00 ] LA Volume BP 32.21 ml Lat E` Fady 9.03 cm/sec [ 10.00 - 15.00 ] LA Volume Index 17.80 ml/m2 [ 16.00 - 34.00 ] Average E/E` 7.22 RV Base Dimen 2D 2.7 cm [ 2.5 - 4.2 ] RV S` 13.87 cm/sec TAPSE 1.57 cm [ 1.71 - 5.00 ] RA Volume 20.07 ml RA Volume Index 11.09 ml/m2 - COMPARISONS: No change compared to prior study. ATTESTATION: I have reviewed and interpreted the pertinent images and measurements of this study. I attest to the conclusions in the final report that is provided above. DISCLAIMER: The study images and the final report will be retained in the patient chart by the [facility] for the legally required time period. This chart constitutes the legal record of any testing performed. Electronically Signed By: Allyssa Amanda MD 04/10/2024 12:00:07 PM SECTION PLOTTER OPERATOR Electronically Signed By: Allyssa Amanda MD 04/10/2024 12:00:07 PM SECTION PLOTTER OPERATOR CC: Allyssa Amanda MD Procedure Note Allyssa Amanda MD - 04/10/2024 [facility] Cardiac [place] [address] Transthoracic Echocardiographic Report Patient Name: JAD CERNA W : 1945 (78y 4m) Gender: M Study Date: 04/10/2024 10:33:51 AM Ht(Inch): 69 Wt(Lb): 147.93 BSA: 1.81 Cigarette Maker: TARAH Mccracken Location: [facility] Order Provider:VASILIY,ALLYSSA Heart Rate: 68 BMI: 21.84 BP: 134 / 77 Quality: The study images were oftechnically adequate quality. Ref Provider: VASILIYALLYSSA PROCEDURES: Echocardiographic Report: ([id number]) Transthoracic complete echo, 2D,spectral and tissue Doppler, color flow Doppler, M-mode. Additional Procedures: Agitated saline bubble study. INDICATIONS: Q21.12 Patent foramen ovale. FINDINGS: Left Ventricle: The left ventricle is small based on volume index.Concentric LV remodeling. Normal left ventricular systolic function. The EjectionFraction (Esteban's) is measured at 59 %. Left ventricular diastolic parameters are consistentwith normal diastolic function. The LV global strain is: -17.9 %. Right Ventricle: Normal right ventricular size. Left Atrium: The left atrium is normal in size. Right Atrium: The right atrium is normal in size. Atrial Septum: Agitated saline bubble study is negative for intracardiacshunt. color flow Doppler shows no residual flow across the device. Mitral Valve: Normal mitral valve leaflet structure. Aortic Valve: No aortic valve stenosis. The mean transaortic gradient is2.47 mmHg. The aortic valve area by the continuity equation (using VTI) is 2.14 cm2. Tricuspid Valve: The tricuspid valve demonstrates normal leafletstructure. Pulmonic Valve: The pulmonic valve demonstrates normal leafletstructure. Aorta: Normal aortic root. CONCLUSIONS: 1. Concentric LV remodeling. Normal left ventricular systolic function.The Ejection Fraction (Esteban's) is measured at 59 %. Left ventricular diastolicparameters are consistent with normal diastolic function. 2. Normal right ventricular size. 3. Agitated saline bubble study is negative for intracardiac shunt. colorflow Doppler shows no residual flow across the device. 4. There is no significant valvular heart disease. MEASUREMENTS: 2D/MM Value Range DopplerValue Range LVIDd 2D 3.33 cm [ 4.20 - 5.80 ] AV Peak Vel1.04 m/s [ 1.00 - 1.70 ] LVIDs 2D 2.25 cm [ 2.50 - 4.00 ] AV Peak PG4.33 IVSd 2D 1.07 cm [ 0.60 - 1.00 ] AV Mean PG2.47 mmHg LVPWd 2D 0.95 cm [ 0.60 - 1.00 ] AV VTI24.25 cm LV Thickness Ratio 1.13 LVOT Peak Vel0.79 m/s [ 0.70 - 1.10 ] LV FS 2D 32.39 % [ 25.00 - 43.00 ] LVOT Peak PG2.50 LV Mass 2D 98.46 g LVOT Mean PG1.11 mmHg LV Mass Index 2D 54.40 g/m2 LVOT VTI17.41 cm RWT 0.57 LVOT Diam1.95 cm EDV Mod BP 48.32 ml [ 62.00 - 150.00 ] ZARINA VTI2.14 cm2 LV EDV Index 26.70 ml/m2 LVOT/AV VTI0.72 - Dimensionless index (DVI) ESV Mod BP 19.86 ml [ 21.00 - 61.00 ] MV E Peak Vel0.55 m/s [ 0.60 - 1.30 ] EF Mod BP 59 % [ 52 - 72 ] MV A Peak Vel0.73 m/s [ 1.00 - 1.20 ] LV GLS -17.9 % [ -18.0 - -16.0 ] MV E/A0.76 ratio [ 0.80 - 1.50 ] LA Length 2C 5.80 cm MV Decel Doso732.18 msec [ 104.00 - 258.00 ] LA Length 4C 4.15 cm Med E` Vel6.21 cm/sec [ 8.00 - 15.00 ] LA Volume BP 32.21 ml Lat E` Vel9.03 cm/sec [ 10.00 - 15.00 ] LA Volume Index 17.80 ml/m2 [ 16.00 - 34.00 ] Average E/E`7.22 RV Base Dimen 2D 2.7 cm [ 2.5 - 4.2 ] RV S`13.87 cm/sec TAPSE 1.57 cm [ 1.71 - 5.00 ] RA Xysvds77.07 ml RA Volume Index11.09 ml/m2 - COMPARISONS: No change compared to prior study. ATTESTATION: I have reviewed and interpreted the pertinent images and measurements ofthis study. I attest to the conclusions in the final report that is provided above. DISCLAIMER: The study images and the final report will be retained in the patientchart by the [facility] for the legally required time period. This chart constitutesthe legal record of any testing performed. Electronically Signed By: Allyssa Amanda MD 04/10/2024 12:00:07 PM SECTION PLOTTER OPERATOR Electronically Signed By: Allyssa Amanda MD 04/10/2024 12:00:07 PM SECTION PLOTTER OPERATOR CC: Allyssa Amanda MD us Allyssa Amanda MD CV ECHO PROCEDURES Final Resu lt * COLONOSCOPY (07/14/2022 10:40 AM CDT) Anatomical Region Laterality Modality Other Narrative Procedure Note Jono Simmons MD - 07/14/2022 10:40 AM CDT ENDOSCOPY LAB Patient Name: Jad Cerna Procedure Date: 07/14/2022 10:40 AM Date of : 1945 Admit Type: Outpatient Age: 76 Gender: Male Attending MD: Jono Simmons M.D. Room: [facility] ENDOSCOPY ROOM 05 Note Status: Finalized Procedure: Colonoscopy Indications: Last colonoscopy: April 2017, Chronic diarrhea Providers: Jono Simmons M.D. Referring MD: James Jacob M.D. Medicines: Monitored Anesthesia Care Complications: No immediate complications. Estimated Blood Loss: Estimated blood loss was minimal. Procedure: Pre-Anesthesia Assessment: - Immediately prior to administration ofmedications, the patient was re-assessed for adequacy to receive sedatives. The benefits, risks and alternatives of theprocedure and sedation were discussed and informed consentwas obtained. All questions were answered. Please referto the signed informed consent document in the medical record. The scope was passed under direct vision.The [id number] was introduced through the anusand advanced to the cecum, identified by appendiceal orifice and ileocecal valve. The colonoscopy was performed without difficulty. The patient tolerated the procedure well. The quality of the bowel preparation was evaluated using the BBPS (BostonBowel Preparation Scale) with scores of: Right Colon = 3 (entire mucosa seen well with no residual staining, small fragments of stool or opaque liquid),Transverse Colon = 3 (entire mucosa seen well with no residual staining, small fragments of stool or opaqueliquid) and Left Colon = 2 (minor amount of residualstaining, small fragments of stool and/or opaque liquid, but mucosa seen well). The total BBPS score equals 8.The quality of the bowel preparation was good. Thebowel preparation used was GoLYTELY via split dose instruction. The quality of the bowel preparationwas good. Findings: The digital rectal exam findings include enlarged prostate. A 2 mm polyp was found in the transverse colon. The polyp was Donna classification Is (protruding, sessile). The polyp was removed with a jumbo cold forceps. Resection and retrieval were complete. A 2 mm polyp was found in the ascending colon. The polyp was Donna classification Is (protruding, sessile). The polyp was removed with a jumbo cold forceps. Resection and retrieval were complete. Many small and large-mouthed diverticula were found in the entirecolon. Internal hemorrhoids were found during endoscopy. The hemorrhoidswere Grade I (internal hemorrhoids that do not prolapse). The exam was otherwise normal throughout the examined colon. Biopsies for histology were taken with a cold forceps from the entire colon for evaluation of microscopic colitis. Impression: - Enlarged prostate found on digital rectal exam. - One 2 mm polyp in the transverse colon, removedwith a jumbo cold forceps. Resected and retrieved. - One 2 mm polyp in the ascending colon, removedwith a jumbo cold forceps. Resected and retrieved. - Diverticulosis in the entire examined colon. - Internal hemorrhoids. - Biopsies were taken with a cold forceps from the entire colon for evaluation of microscopiccolitis. Recommendation: - Await pathology results. - Recommend discontinuing colon cancer screeningdue to patient's age. - Resume Plavix (clopidogrel) at prior dosetoday. - - Contact Information: During normal business hours - [facility] [place] [facility]: [phone]. After hours, evening, nights, weekends and holidays- Please call the hospital cover mat machine operator at and ask for the GI fellow deportation examiner. Electronically signed by Jono Simmons MD Jono Simmons M.D. 07/14/2022 11:32:42 AM Number of Addenda: 0 Note Initiated On: 07/14/2022 10:40 AM us Jono Simmons MD ENDOSCOPY PROCEDURES Final Result * CT Abdomen Pelvis W Contrast (11/17/2013 3:24 PM CDT) Anatomical Region Laterality Modality Body N/A Computed Tomogra phy 11/17/2013 3:24 PM CDT Narrative 11/17/2013 4:04 PM CDT ROBSON DAWN M.D. FINAL REPORT ACC# Date Time Exam [id number] Nov 17, 2013 15:24:[id number] Abd & Pelvis with cont EXAMINATION: CT abdomen and pelvis with contrast HISTORY: 67-year-old male with abdominal pain. COMPARISON: CT chest abdomen and pelvis 08/09/2010. TECHNIQUE: After the uneventful administration of intravenous contrast, helical CT acquisition was performed through the abdomen and pelvis per standard protocol. 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 There are coronary artery calcifications in the RCA distribution. Tiny low-attenuation foci scattered within both lobes of the liver are too small to characterize but likely represents cysts. There is a small focus of arterial enhancement in segment 8 of the liver seen on slice position -146.8, unchanged from 2011 and likely of a benign etiology. Liver is otherwise within expected limits. The spleen, pancreas, and adrenal glands are within normal limits. There is a very small sliding hiatal hernia. Kidneys are normal bilaterally. Nephrograms are symmetric. No hydronephrosis or hydroureter on either side. The abdominal aorta is mildly calcified and atherosclerotic but normal in course and caliber. There is extensive colonic diverticulosis most notable in the sigmoid colon without evidence of acute diverticulitis. No evidence of acute appendicitis. The appendix is not definitely seen. There is very mild urinary bladder wall thickening is likely due to mild chronic bladder outlet obstruction as the prostate is also mildly enlarged. No inguinal lymphadenopathy. No free pelvic fluid. There is bone demineralization. No suspicious osseous lesions are seen. IMPRESSION: 1. Extensive colonic diverticulosis, but no findings to suggest acute diverticulitis. 2. Evidence of mild chronic bladder outlet obstruction. 3. No acute abdominal or pelvic findings. Requested By: Dictated By: ROBSON DAWN M.D. on Nov 17 2013 4:04P This document has been electronically signed by: ROBSON DAWN M.D. on Nov 17 2013 4:04P [id number] Procedure Note Provider, MD [facility] - 06/26/2016 ROBSON DAWN M.D. FINAL REPORT ACC# Date Time Exam [id number] Nov 17, 2013 15:24:[id number] Abd & Pelvis with cont EXAMINATION: CT abdomen and pelvis with contrast HISTORY: 67-year-old male with abdominal pain. COMPARISON: CT chest abdomen and pelvis 08/09/2010. TECHNIQUE: After the uneventful administration of intravenous contrast, helical CT acquisition was performed through the abdomen and pelvis per standard protocol. 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 There are coronary artery calcifications in the RCA distribution. Tiny low-attenuation foci scattered within both lobes of the liver are too small to characterize but likely represents cysts. There is a small focus of arterial enhancement in segment 8 of the liver seen on slice position -146.8, unchanged from 2011 and likely of a benign etiology. Liver is otherwise within expected limits. The spleen, pancreas, and adrenal glands are within normal limits. There is a very small sliding hiatal hernia. Kidneys are normal bilaterally. Nephrograms are symmetric. No hydronephrosis or hydroureter on either side. The abdominal aorta is mildly calcified and atherosclerotic but normal in course and caliber. There is extensive colonic diverticulosis most notable in the sigmoid colon without evidence of acute diverticulitis. No evidence of acute appendicitis. The appendix is not definitely seen. There is very mild urinary bladder wall thickening is likely due to mild chronic bladder outlet obstruction as the prostate is also mildly enlarged. No inguinal lymphadenopathy. No free pelvic fluid. There is bone demineralization. No suspicious osseous lesions are seen. IMPRESSION: 1. Extensive colonic diverticulosis, but no findings to suggest acute diverticulitis. 2. Evidence of mild chronic bladder outlet obstruction. 3. No acute abdominal or pelvic findings. Requested By: Dictated By: ROBSON DAWN M.D. on Nov 17 2013 4:04P This document has been electronically signed by: ROBSON DAWN M.D. on Nov 17 2013 4:04P [id number] us Historical Provider MD YANEZ CT PROCEDURES Final R esult from Last 3 Months or Most Recently Relevant to Health Maintenance Insurance [employer] MEDICARE MEDICARE [facility] MEDICARE [facility] MEDICARE [employer] MEDICARE [employer] MEDICARE Advance Directives For more information, please contact: [phone] * Full Code (Latest Code Status on File) Date Activated Date Inactivated Comments 12/08/2022 9:43 AM 12/08/2022 2:48 PM * Full Code Date Activated Date Inactivated Comments 07/14/2022 10:07 AM 07/14/2022 4:21 PM * Full Code Date Activated Date Inactivated Comments 11/18/2021 11:05 AM 11/18/2021 7:10 PM Care Teams Knockup Worker Relationship Specialty Start Date End Date James Jacob MD [id number] [place] [address] PCP - General 06/26/16
--- OUTSIDE RECORDS SUMMARY | 2024-06-21 09:08 | XMS_ITS | Clinical Summary ---
Author Organization [facility] Address [address] [place] [address] Care Team Providers Care Crm System Administrator Name Role Phone James Jacob MD Primary Care Provider [phone] Allergies No known active allergies Medications simethicone (MYLICON,GAS-X ) 125 mg capsule Take 1 capsule (125 mg total) by mouth daily as needed Active acetaminophen (TYLENOL) 500 mg tablet Take 2 tablets (1,000 mg total) by mouth nightly Active MULTIVITAMIN ORAL Take 1 Dose by mouth daily Active FreeStyle Karli 3 [place] misc as directed 01/16/20 23 Active blood glucose diagnostic (glucose blood) stripIndicatio ns:Type 2 diabetes mellitus treated with insulin ([facility]) Check blood sugar three times a day or as directed 300 each 3 05/16/19 24 Active lancets miscIndication s:Type 2 diabetes mellitus treated with insulin ([facility]) Use to check glucose 3 times per [...] ons:Type 2 diabetes mellitus treated with insulin ([facility]) Freestyle Karli 3 Plus Sensors. Use with [...] ations:Type 2 diabetes mellitus treated with insulin (HCC) Inject 26 Units under the skin daily 25 mL 05/10/19 25 2025 Active insulin lispro (HumaLOG) 100 unit/mL pen for injection Inject 3 Units under the skin daily before dinner Add sliding scales for high BG 6 mL 05/10/19 25 2025 Active rosuvastatin (CRESTOR) 20 mg tablet Take 1 tablet (20 mg total) by mouth daily 90 tablet 05/10/19 25 2025 Active clopidogreL (PLAVIX) 75 mg tablet TAKE 1 TABLET BY MOUTH DAILY GENERIC EQUIVALENT FOR PLAVIX 90 tablet 2 06/12/19 25 Active pen needle, diabetic (BD Ultra-Fine Kelin Pen Needle) 32 gauge x 5/32 needleIndicati ons:Type 2 diabetes mellitus treated with insulin (HCC) USE TO INJECT INSULIN UP TO 4 TIMES A DAY 360 each 3 06/11/19 25 Active pen needle, diabetic (BD Ultra-Fine Kelin Pen Needle) 32 gauge x 5/32 needleIndicati ons:Type 2 diabetes mellitus treated with insulin (HCC) USE TO INJECT INSULIN UP TO 4 [...] (11/15/2021): Added automatically from request for surgery [id number] Diabetic neuropathy 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 05/03/2021 Internal hemorrhoids 12/30/2020 Low back pain 06/01/2020 Assessment & Plan (06/01/2020 11:32 AM CDT): Will try gabapentin at hs Memory loss 06/01/2020 Calculus of gallbladder with out cholecystitis without obstruction 01/30/2020 Overview (01/30/2020): Added automatically from request for surgery [id number] Suspected COVID-19 virus infection 09/08/2019 Assessment & [...] PFO (patent foramen ovale) 09/29/2009 Stroke 09/27/2009 Encounters Date Type Department Care Team Description 05/09/2024 11:00 AM CDT Office Visit [facility] Endocrinology Metabolism and Lipid [address] [facility] [address] [place] [address] Niru Myles MD Alzheimer's dementia without behavioral disturbance, psychotic disturbance, mood disturbance, or anxiety, unspecified dementia severity, unspecified timing of dementia onset (HCC) (Primary Dx); Type 2 diabetes mellitus treated with insulin (HCC); Amyloidosis, unspecified type (HCC); Type 2 diabetes mellitus with other specified complication, with long-term current use of insulin (HCC) 04/23/2024 Results Follow-Up [facility] Endocrinology Metabolism and Lipid [address] [facility] 5th [place] [address] [place] [address] Niru Myles MD 04/10/2024 11:45 AM DRYWALL SANDER Office Visit [facility] Cardiology [address] [facility] 8th [place] [address] [place] [id number] Allyssa Amanda MD Coronary artery disease of [place] artery of [place] heart with stable angina pectoris (Primary Dx); PFO (patent foramen ovale); Essential hypertension 04/10/2024 10:27 AM DRYWALL SANDER - 04/10/2024 11:59 PM DRYWALL SANDER Hospital Encounter [facility] Cardiac Diagnostic Lab [address] [facility] 8th [place] [phone] PFO (patent foramen ovale) Discharge Disposition: Discharge to home or self care from Last 3 Months Immunizations Immunization Administration Dates Next Due Influenza, [...] (Abrysvo) 01/18/2024 Tdap 11/06/2017 ZOSTER Recombinant 03/11/2019,12/10/2018 Surgical History Surgery Date Site/Laterality Comments APPENDECTOMY Appendectomy - (Added by TW Conv) UMBILICAL HERNIA REPAIR CARDIAC CATHETERIZATION CORONARY STENT PLACEMENT 2021 LAPAROSCOPIC CHOLECYSTECTOMY 02/26/2019 - 02/26/2020 Medical History Medical History Date Comments Personal history of transien t ischemic attack (TIA), and cerebral infarction without residual deficits History of transient cerebra l ischemia - 09/2009 (Added by TW Conv) Coronary artery disease Diabetes mellitus (HCC) Hypertension Hyperlipidemia Skin cancer of scalp Stroke (HCC) Family History Medical History Relation Name Comments Heart attack Brother 1 Family history of heart attack - (Added by TW Conv) Coronary artery disease Brother 2 Fami ly history of coronary artery disease - (Added by TW Conv) Heart attack Brother 3 Family history of heart attack - (Added by TW Conv) Stroke Father Stroke Syndrome - (Added by TW Conv) Coronary artery disease Mother Fami ly history of coronary artery disease - (Added by TW Conv) Heart attack Mother Family history of heart attack - (Added by TW Conv)/Family history of heart attack - (Added by TW Conv) Stroke Mother Stroke Syndrome - (Added by TW Conv) Diabetes type II Other 1 Type 2 Diab etes Mellitus - many family members (Added by TW Conv) Stroke Other 2 Stroke Syndrome - (Added by TW Conv) Heart attack Sister 1 Family history of heart attack - (Added by TW Conv) Coronary artery disease Sister 2 Fami ly history of coronary artery disease - (Added by TW Conv) Heart attack Sister 3 Family history of heart attack - (Added by TW Conv) Relation Name Status Comments Brother 1 Brother 2 Brother 3 Father Mother Other 1 Other 2 Sister 1 Sister 2 Sister 3 Social History Tobacco Use Types Packs/Day Years Used Date Smoking Tobacco: Former Cigarettes 1 1978 Smokeless Tobacco: Never Tobacco Cessation:Counseling Given: [...] on file Legal Sex Male 1:22 AM DRYWALL SANDER Gender Identity Male 01/16/2023 5:56 PM DRYWALL SANDER Sexual Orientation Not on file Obstetrics History Last Filed Vital Signs Vital Sign Reading Time Taken Comments Blood Pressure 112/62 05/09/2024 10:42 AM CDT Pulse 85 05/09/2024 10:42 AM CDT Temperature 36.4 C (97.6 F) 05/09/2024 10:42 AM CDT Respiratory Rate 16 12/08/2022 10:35 AM CDT Oxygen Saturation 94% 04/10/2024 11:33 AM DRYWALL SANDER Inhaled Oxygen Concentration - - Weight 65.4 kg (144 lb 3.2 oz) 05/09/2024 10:42 AM CDT Height 175.3 cm (5' 9.02 ) 05/09/2024 10:42 AM C DT Body Mass Index 21.28 05/09/2024 10:42 AM CDT Plan of Treatment Scheduled Procedures Name Priority Associated Diagnoses Date/Ti me COLONOSCOPY History of colon polyps COLONOSCOPY Diarrhea, unspecified type Constipation, unspecified constipation type Health Maintenance Due Date Last Done Comments Depression Screening 1945 Hepatitis C Screening 1945 Dilated Eye Exam 1945 Foot Exam 1945 Hepatitis B Screening 11/18/1965 Well Visit 65+ 11/18/2012 Fall Risk Assessment 12/09/2023 12/08/2022 Covid-19 Vaccine (2023-03 5 season) 2024 01/18/2024, 12/13/2022, 12/26/2021, Additional history exists Hemoglobin A1C 10/19/2024 04/21/2024, 09/26, 06/06/2023, Additional history exists Albumin Creatinine Ratio, Urine 04/21/2025 04/21/2024, 06/06/2023, 01/05/2023, Additional history exists Lipid Panel 04/21/2025 04/21/2024, 05/27, 05/05/2022, Additional history exists eGFR 04/21/2025 04/21/2024, 09/26, 06/06/2023, Additional history exists DTaP/Tdap/Td Vaccine (2 - Td or Tdap) 11/07/2027 11/06/2017 Abdominal Aortic Aneurysm (A AA) Screen Completed 11/17/2013 Pneumococcal vaccine 65+ Completed 019, 12/06/2016, 12/21/2010 Zoster Vaccine Completed 03/11/2019, 12/10/2018 Colon Cancer Screening-CT Colonography Discontinued 07/14/2022, 05/14/2017 Colon Cancer Screening-Colonoscopy Discontinued 07/14/2022, 05/14/2017 Colon Cancer Screening-DNA Stool Discontinued 07/15/19, 05/14/2017 Colon Cancer Screening-FIT Discontinued 07/14/2022, Colon Cancer Screening-FOBT Discontinued 07/14/2022, 0 05/14/2017 Colon Cancer Screening-Sigmoidoscopy Discontinued 07/14/2022, 05/14/2017 Colorectal Cancer Screening Discontinued Influenza Vaccine Completed 12/24/2023, , 01/04/2021, Additional history exists Medical Devices Implanted Type Area Skein Straightener Device Identifier Shelf Expiration Date Model / Serial / Lot [employer] Stent Coronary De Rx Cocr Ors Msn 3.5x26mm [id number] - [id number] - [id number] Implanted:Qty : 1 on 11/18/2021 by Jonathan Marques MD at [facility] Stent N/A: Anterior Descending Cornary Artery [employer] 12/22/2022 [id number] / [id number] / [id number] [employer] Stent Coronary De Rx Cocr Ors Msn 4.0x26mm [id number] - [id number] - [id number] Implanted:Qty : 1 on 11/18/2021 by Jonathan Marques MD at [facility] Stent Right: Coronary Artery [employer] 02/14/2023 [id number] / [id number] / [id number] Procedures Procedure Name Priority Date/Time Associated Diagnosis Comments VITAMIN D 25 HYDROXY Routine 04/21/2024 9:25 AM DRYWALL SANDER Vitamin D deficiency CBC WITH AUTO DIFFERENTIAL Routine 04/21/2024 9:25 AM DRYWALL SANDER Type 2 diabetes mellitus with other specified complication, with long-term current use of insulin (HCC) ALBUMIN CREATININE RATIO, URINE Routine 04/21/2024 9:25 AM DRYWALL SANDER Type 2 diabetes mellitus with other specified complication, with long-term current use of insulin (HCC) HEMOGLOBIN A1C Routine 04/21/2024 9:25 AM DRYWALL SANDER Type 2 diabetes mellitus with other specified complication, with long-term current use of insulin (HCC) COMPREHENSIVE METABOLIC PANEL Routine 04/21/2024 9:25 AM DRYWALL SANDER Type 2 diabetes mellitus with other specified complication, with long-term current use of insulin (HCC) LIPID PANEL Routine 04/21/2024 9:25 AM DRYWALL SANDER Mixed hyperlipidemia TRANSTHORACIC ECHO (TTE) COMPLETE W DOPPLER/CF WO CONTRAST W BUBBLE Routine 04/10/2024 11:33 AM DRYWALL SANDER PFO (patent foramen ovale) COLONOSCOPY 07/14/2022 10:[address] ABDOMEN PELVIS W CONTRAST Routine 11/17/2013 3:24 PM CDT from Last 3 Months or Most Recently Relevant to Health Maintenance Results * (ABNORMAL) CBC with auto differential (04/21/2024 9:25 AM DRYWALL SANDER) WBC 10.1 3.4 - 10.8 x10E3/uL [facility] [...] [facility] - 01 Blood 04/21/2024 9:25 AM DRYWALL SANDER 04/21/2024 Narrative [facility] - 04/22/2024 7:09 AM DRYWALL SANDER Performed at: [address] [place] [id number] Agricultural Education Instructor: Jorge Flowers PhD, Phone: [phone] Niru Myles MD LAB BLOOD ORDERABLES Final Re sult Performing Organization Address [facility] Co de Phone Number [facility] - 01 * (ABNORMAL) Albumin Creatinine Ratio, Urine (04/21/2024 9:25 AM DRYWALL SANDER) Creatinine ur 90.2 Not Estab. mg/dL [facility] - 01 Microalbumin, ur 132.1 Not Estab. ug/mL [facility] - 01 Microalbumin/cr eat ratio 146(H) 0 - 29 mg/g creat [facility] - 01 Comment: Normal: 0 - 29 Moderately increased: 30 - 300 Severely increased: >300 Urine 04/21/2024 9:25 AM DRYWALL SANDER 04/21/2024 Narrative [facility] - 04/22/2024 3:09 PM DRYWALL SANDER Performed at: [address] [place] [id number] Agricultural Education Instructor: Jorge Flowers PhD, Phone: [phone] Niru Myles MD LAB URINE ORDERABLES Final Re sult Performing Organization Address [facility]/State/ZIP Co de Phone Number [facility] - 01 * Vitamin D 25 hydroxy (04/21/2024 9:25 AM DRYWALL SANDER) Vitamin D, 25-Hydroxy 73.5 30.0 - 100.0 ng/mL [facility] - Comment: Vitamin D deficiency has been defined by the [place] of [employer] and an Endocrine Society practice guideline as a level of serum 25-OH vitamin D less than 20 ng/mL (1,2). The Endocrine Society went on to further define vitamin D insufficiency as a level between 21 and 29 ng/mL (2). 1. IOM ([place] [employer]). 2010. Dietary reference intakes for calcium and D. [place]: The National Academies Press. 2. Rolando MF, David VILLARREAL, Karis LEE, et al. Evaluation, treatment, and prevention of vitamin D deficiency: an Endocrine Society clinical practice guideline. JCEM. 2010; 96(7):1911-30. Blood 04/21/2024 9:25 AM DRYWALL SANDER 04/21/2024 Narrative [facility] - 04/22/2024 7:09 AM DRYWALL SANDER Performed at: - Lab[address] [id number] Agricultural Education Instructor: Jorge Flowers PhD, Phone: [phone] us Niru Myles MD LAB BLOOD ORDERABLES Final Re sult Performing Organization Address [facility]/ZIP Co de Phone Number [facility] - * (ABNORMAL) Hemoglobin A1c (04/21/2024 9:25 AM DRYWALL SANDER) Hgb A1C 6.5(H) 4.8 - 5.6 % [facility] - 01 Comment: Prediabetes: 5.7 - 6.4 Diabetes: >6.4 Glycemic control for adults with diabetes: <7.0 Blood 04/21/2024 9:25 AM DRYWALL SANDER 04/21/2024 Narrative [facility] - 04/22/2024 7:09 AM DRYWALL SANDER Performed at: - [facility] [id number] Agricultural Education Instructor: Jorge Flowers PhD, Phone: [phone] Niru Myles MD LAB BLOOD ORDERABLES Final Re sult Performing Organization Address [facility] de Phone Number [facility] * Lipid panel (04/21/2024 9:25 AM DRYWALL SANDER) Cholesterol 154 100 - 199 mg/dL [facility] - 01 Triglycerides 137 0 - 149 mg/dL [facility] - 01 HDL Cholesterol 46 >39 mg/dL [facility] - 01 VLDL 24 5 - 40 mg/dL [facility] - 01 LDL, calculated 84 0 - 99 mg/dL [facility] - 01 Blood 04/21/2024 9:25 AM DRYWALL SANDER 04/21/2024 Narrative [facility] - 04/22/2024 7:09 AM DRYWALL SANDER Performed at: [address] [id number] Agricultural Education Instructor: Jorge Flowers PhD, Phone: [phone] Niru Myles MD LAB BLOOD ORDERABLES Final Re sult Performing Organization Address [facility] de Phone Number [facility] - * (ABNORMAL) Comprehensive metabolic panel (04/21/2024 9:25 AM DRYWALL SANDER) Glucose 161(H) 70 - 99 mg/dL [facility] [...] [facility] - 01 Blood 04/21/2024 9:25 AM DRYWALL SANDER 04/21/2024 Narrative [facility] - 04/22/2024 7:09 AM DRYWALL SANDER Performed at: [address] [place] [id number] Agricultural Education Instructor: Jorge Flowers PhD, Phone: [phone] us Niru Myles MD LAB BLOOD ORDERABLES Final Re sult [facility] - 01 * TRANSTHORACIC ECHO (TTE) COMPLETE W DOPPLER/CF WO CONTRAST W BUBBLE (04/10/2024 11:33 AM DRYWALL SANDER) Anatomical Region Laterality Modality Ultrasound 04/10/2024 10:3 3 AM DRYWALL SANDER Narrative 04/10/2024 12:00 PM DRYWALL SANDER [facility] Cardiac [place] [address] Transthoracic Echocardiographic Report Patient Name: JAD CERNA W : 1945 (78y 4m) Gender: M Study Date: 04/10/2024 10:33:51 AM Ht(Inch): 69 Wt(Lb): 147.93 BSA: 1.81 Director Enterprise Sales: TARAH Mccracken Location: [facility] Order Provider: ALLYSSA AMANDA Heart Rate: 68 BMI: 21.84 BP: 134 / 77 Quality: The study images were of technically adequate quality. Ref Provider: ALLYSSA AMANDA PROCEDURES: Echocardiographic Report: ([id number]) Transthoracic complete echo, 2D, spectral and tissue [...] By: Allyssa Amanda MD 04/10/2024 12:00:07 PM DRYWALL SANDER Electronically Signed By: Allyssa Amanda MD 04/10/2024 12:00:07 PM DRYWALL SANDER CC: Allyssa Amanda MD Procedure Note Allyssa Amanda MD - 04/10/2024 [facility] [place] [address] Transthoracic Echocardiographic Report Patient Name: JAD CERNA W : 1945 (78y 4m) Gender: M Study Date: 04/10/2024 10:33:51 AM Ht(Inch): 69 Wt(Lb): 147.93 BSA: 1.81 Director Enterprise Sales: TARAH Mccracken Location: [facility] Order Provider:ALLYSSA AMANDA Heart Rate: 68 BMI: 21.84 BP: 134 / 77 Quality: The study images were oftechnically adequate quality. Ref Provider: ALLYSSA AMANDA PROCEDURES: Echocardiographic Report: ([id number]) Transthoracic complete echo, 2D,spectral and tissue Doppler, [...] LA Length 2C 5.80 cm MV Decel Pysw517.18 msec [ 104.00 - 258.00 ] LA [...] cm [ 1.71 - 5.00 ] RA Qujeko94.07 ml RA Volume Index11.09 ml/m2 - COMPARISONS: [...] By: Allyssa Amanda MD 04/10/2024 12:00:07 PM DRYWALL SANDER Electronically Signed By: Allyssa Amanda MD 04/10/2024 12:00:07 PM DRYWALL SANDER CC: Allyssa Amanda MD us Allyssa Amanda MD CV ECHO PROCEDURES Final Resu lt * COLONOSCOPY (07/14/2022 10:40 AM CDT) Anatomical Region Laterality Modality Other Narrative Procedure Note Jono Simmons MD - 07/14/2022 10:40 AM CDT ENDOSCOPY LAB Patient Name: Jad eCrna Procedure Date: 07/14/2022 10:40 AM Date of : 1945 Admit Type: Outpatient Age: 76 Gender: Male Attending MD: Jono Simmons M.D. Room: [facility] ENDOSCOPY ROOM 05 Note Status: Finalized Procedure: [...] The scope was passed under direct vision.The [id number] was introduced through the anusand advanced to [...] During normal business hours - Please call theNurse Coordinator: [phone]. After hours, evening, nights, weekends and holidays- Please call the hospital premix operator concentrate at and ask for the GI fellow reconditioner. Electronically signed by Jono Simmons MD Jono [...] M.D. FINAL REPORT ACC# Date Time Exam [id number] Nov 17, 2013 15:24:[id number] Abd & Pelvis with cont EXAMINATION: [...] DAWN M.D. on Nov 17 2013 4:04P [id number] Procedure Note Provider, MD Justus - 06/26/2016 ROBSON DAWN M.D. FINAL REPORT ACC# Date Time Exam [id number] Nov 17, 2013 15:24:[id number] Abd & Pelvis with cont EXAMINATION: [...] DAWN M.D. on Nov 17 2013 4:04P [id number] Historical Provider MD YANEZ CT PROCEDURES Final R esult from Last 3 Months or Most Recently Relevant to Health Maintenance Insurance [facility]ICARE MEDICARE [facility] MEDICARE [facility] MEDICARE [facility] MEDICARE [facility] MEDICARE Advance Directives For more information, please contact: [phone] * Full Code (Latest Code Status on File) Date Activated Date Inactivated Comments 12/08/2022 9:43 AM 12/08/2022 2:48 PM * Full Code Date Activated Date Inactivated Comments 07/14/2022 10:07 AM 07/14/2022 4:21 PM * Full Code Date Activated Date Inactivated Comments 11/18/2021 11:05 AM 11/18/2021 7:10 PM Care Teams Crm System Administrator Relationship Specialty Start Date End Date James Jacob MD [address] [address] PCP - General 06/26/16
--- OUTSIDE RECORDS SUMMARY | 2024-06-21 09:08 | XMS_ITS | Encounter Summary ---
Author Organization [facility] Address [address] [place] [address] Phone Care Team Providers Care Forensic Locksmith Name Role Phone James Jacob MD Primary Care Provider [phone] Encounter Details Date Type Department Care Team (Latest Contact Info) Description 03/01/2018 Orders Only [facility] Scanning, Provider Social History Tobacco Use Types Packs/Day Years Used Date Smoking Tobacco: Former Smokeless Tobacco: Never Sex and Gender Information Value Date Recorded Sex Assigned at Not on file Legal Sex Male 1:22 AM LENS FABRICATING MACHINE TENDER Gender Identity Male 01/16/2023 5:56 PM LENS FABRICATING MACHINE TENDER Sexual Orientation Not on file documented as of this encounter Plan of Treatment Scheduled Procedures Name Priority Associated Diagnoses Date/Ti me COLONOSCOPY History of colon polyps COLONOSCOPY Diarrhea, unspecified type Constipation, unspecified constipation type documented as of this encounter Procedures Procedure Name Priority Date/Time Associated Diagnosis Comments SCAN - LABS 03/01/2018 documented in this encounter Results * SCAN - LABS (03/01/2018) us Provider Scanning Final Result documented in this encounter Visit Diagnoses Not on filedocumented in this encounter Additional Health Concerns Infection Onset Date Last Indicated Resolved Time COVID: Suspected 09/08/2019 09/08/2019 09/09/2019 2:27 PM CDT Respiratory Infection (ABEL), contact + droplet Comment:Automatically added due to negative COVID-19 result. 09/09/2019 09/09/2019 09/23/2019 3:0 5 AM CDT documented as of this encounter Care Teams Forensic Locksmith Relationship Specialty Start Date End Date James Jacob MD [address] [facility] [address], [place] [address] PCP - General 06/26/16 documented as of this encounter
--- OUTSIDE RECORDS SUMMARY | 2024-06-21 09:08 | XMS_ITS | Clinical Summary ---
Author Organization [facility] Address [address] [place] [address] Care Team Providers Care Stable Manager Name Role Phone James Jacob MD Primary Care Provider [phone] Radha Mota RN Unavailable [phone] Source Comments [facility],non-owned Affiliates and Associated Physician Practices is amultiple site organization consisting of ambulatory clinics and hospital sitesin [place], [place], [place] and [place]. This disclosure is being madepursuant to the Care Everywhere program and may not contain all information available regarding this patient. Last updated 17.[facility] Allergies No known active allergies Medications * Be aware that medications may not be up to date on this document. Alwaysverify current medications with the patient. amlodipine (NORVASC) 5 MG tablet Take 1 Tab by mouth daily. 30 Tab 5 10/27/2009 Active clopidogrel (PLAVIX) 75 MG tablet Take 1 Tab by mouth daily. 30 Tab 5 10/27/2009 Active Pantoprazole Sodium (PROTONIX PO) Take 40 mg by mouth once daily. Active sildenafil (VIAGRA) 100 MG tablet Take 100 mg by mouth once as needed. Active rosuvastatin (CRESTOR) 20 MG tablet Take 20 mg by mouth once daily. Active fenofibrate (TRICOR) 145 MG tablet Take 145 mg by mouth once daily. Active Multiple Vitamin (MULTIVITAMINS PO) Take by mouth once daily. Active aspirin EC (ECOTRIN) 81 MG tablet Take 81 mg by mouth once daily. Active valACYclovir (VALTREX) 500 MG tablet Take 500 mg by mouth once daily. Active [place]-3 Fatty Acids (FISH OIL MAXIMUM STRENGTH) 1200 MG CAPS Take 1,200 mg by mouth Three times a week. Active metFORMIN (GLUCOPHAGE) 1000 MG tablet Take 1,000 mg by mouth 2 times daily with morning and evening meal. Active Magnesium Oxide (MAG-200 PO) Take 1 Tab by mouth 3 times daily. 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 S/P patent foramen ovale closure 10/08/2009 Overview (11/08/2009): 35-mm cribriform Amplatzer device PFO (patent foramen ovale) 09/29/2009 Stroke 09/27/2009 Type II or unspecified type diabetes mellitus without mention of complication, not stated as uncontrolled Overview (10/05/2009): niddm High blood cholesterol GERD (gastroesophageal reflux disease) HTN (hypertension), benign CAD (coronary artery disease) Resolved Problems Problem Noted Date Diagnosed Date Resolved Date Status post placement of imp lantable loop recorder 05/06/2014 02/08/2015 Social History Tobacco Use Types Packs/Day Years Used Date Smoking Tobacco: Former Smokeless Tobacco: Former Tobacco Cessation:Counseling Given: Yes Comments:quit 1978 Alcohol Use Standard Drinks/Week Comments Yes 0 (1 standard drink = 0.6 oz pur e alcohol) social Sex and Gender Information Value Date Recorded Sex Assigned at Not on file Legal Sex Male 9:09 AM GROUP PROGRAM MANAGER Gender Identity Not on file Sexual Orientation Not on file Last Filed Vital Signs Vital Sign Reading Time Taken Comments Blood Pressure 112/80 02/08/2015 8:35 AM GROUP PROGRAM MANAGER Pulse 73 02/08/2015 8:35 AM GROUP PROGRAM MANAGER Temperature 36.6 C (97.8 F) 01/26/2015 9:55 AM GROUP PROGRAM MANAGER Respiratory Rate 16 01/26/2015 12:35 PM GROUP PROGRAM MANAGER Oxygen Saturation 98% 02/08/2015 8:35 AM GROUP PROGRAM MANAGER Inhaled Oxygen Concentration - - Weight 73.9 kg (163 lb) 02/08/2015 8:35 AM GROUP PROGRAM MANAGER Height 175.3 cm (5' 9 ) 02/08/2015 8:35 AM GROUP PROGRAM MANAGER Body Mass Index 24.07 02/08/2015 8:35 AM GROUP PROGRAM MANAGER Plan of Treatment Health Maintenance Due Date Last Done Comments HEPATITIS C SCREENING 11/14/1965 DTAP/TDAP/TD VACCINES (1 - Tdap) 11/18/1966 PNEUMOCOCCAL VACCINE 50+ (1 of 1 - PCV) 11/18/1997 ZOSTER VACCINE (1 of 2) 11/18/1997 DIABETES-FOOT EXAM WITH MONOFILAMENT 03/25/2012 DIABETES-HGB A1C 12/22/2014 06/22/2014, 09/28/2009 DIABETES-SERUM CREATININE 07/17/20152014, 06/25/2014, 06/22/2014, Additional history exists Respiratory Syncytial Virus (RSV) Vaccine Pt: or over 60 yrs (1 - 1-dose 75+ series) 11/18/2022 COVID-19 VACCINE ( - season) 2023 DEPRESSION SCREENING 02/27/2024 DIABETES - URINE PROTEIN SCREENING 02/27/2024 INFLUENZA VACCINE (Season Ended) 2024 HEPATITIS B VACCINE Aged Out No longe r eligible based on patient's age to complete this topic HIB VACCINE Aged Out No longer eligi ble based on patient's age to complete this topic HPV VACCINE Aged Out No longer eligi ble based on patient's age to complete this topic MENINGOCOCCAL (Group B) VACCINE SHARED DECISION-MAKING Aged Out No longer eligible based on patient's age to complete this topic MENINGOCOCCAL GROUPS A/C/Y/W VACCINE Aged Out No longer eligible based on patient's age to complete this topic Procedures Procedure Name Priority Date/Time Associated Diagnosis Comments BASIC METABOLIC PANEL (CALCIUM TOTAL) AM Draw 07/16/2014 5:04 AM CDT Stroke PFO (patent foramen ovale) DM w/o complication type II High blood cholesterol GERD (gastroesophageal reflux disease) HTN (hypertension), benign S/P patent foramen ovale closure Palpitations Status post placement of implantable loop recorder HEMOGLOBIN A1C Routine 06/22/2014 2:25 PM CDT DM w/o complication type II from Last 3 Months or Most Recently Relevant to Health Maintenance Results * (ABNORMAL) BASIC METABOLIC PANEL (CALCIUM TOTAL) (07/16/2014 5:04 AM CDT) Glucose 130(H) 74 - 106 mg/dL 07/16/2014 6:42 AM CDT [facility] Sodium 141 136 - 145 mmol/L 07/16/2014 6:42 AM CDT [facility] Potassium 4.1 3.5 - 5.1 mmol/L 07/16/2014 6:42 AM T [facility] Chloride 109(H) 98 - 107 mmol/L 07/16/2014 6:42 AM T [facility] CO2 26 22 - 31 mmol/L 07/16/2014 6:42 AM [facility] Calcium 8.5 8.5 - 10.1 mg/dL 07/16/2014 6:42 AM [facility] Anion Gap 6 5 - 15 mmol/L 07/16/2014 6:42 AM T [facility] BUN 11 7 - 21 mg/dL 07/16/2014 6:42 AM T [facility] Creatinine 0.87 0.50 - 1.30 mg/dL 07/16/2014 6:42 AM T [facility] eGFR by MDRD >60 >60 mL/min/1.7 3m2 07/16/2014 6:42 AM [facility] eGFR by MDRD >60 >60 mL/min/1.7 3m2 07/16/2014 6:42 AM [facility] Blood BLOOD SPECIMEN / Unknown Lab Venipuncture / Unknown 07/16/2014 5:04 AM CDT 07/16/2014 5:11 AM CDT Cee Leonard MD LAB - CHEMISTRY ORDERABLES Final Result [facility] [address] [place] [address] * (ABNORMAL) HEMOGLOBIN A1C (06/22/2014 2:25 PM CDT) Hemoglobin A1c 6.4(H) 4.8 - 5.6 % [facility] ACCOUNT BILL Comment: . Increased risk for diabetes: 5.7 - 6.4 Diabetes: >6.4 Glycemic control for adults with diabetes: <7.0 Whole blood specimen (specimen) BLOOD SPECIMEN WITH EDTA / Unknown 06/22/2014 2:25 PM CDT 06/22/2014 6:22 PM CDT Narrative Resulting Agency Comment [facility] [address] [facility] [id number] Cee Leonard MD LAB - CHEMISTRY ORDERABLES Final Result [facility] ACCOUNT BILL [id number] [place] [address] from Last 3 Months or Most Recently Relevant to Health Maintenance Insurance Member Subscriber Plan / Payer (Ef fective 2012-Present) Name:Jad Moran Jr. Relation to Subscriber:Self Name:Jad Moran Jr. Payer ID:Not on file Type:Medicare-Managed Care Address: [place] [id number] [facility] MANAGED MEDICARE ADV Advance Directives * Full Code (Latest Code Status on File) Date Activated Date Inactivated Comments 01/26/2015 11:15 AM 01/27/2015 3:10 PM * Full Code Date Activated Date Inactivated Comments 07/15/2014 12:59 PM 07/16/2014 11:38 AM * Full Code Date Activated Date Inactivated Comments 06/24/2014 4:56 PM 06/25/2014 2:22 PM * Full Code Date Activated Date Inactivated Comments 10/08/2009 10:26 AM 10/09/2009 11:21 PM * Full Code Date Activated Date Inactivated Comments 09/27/2009 1:22 PM 10/01/2009 1:57 AM Care Teams Stable Manager Relationship Specialty Start Date End Date James Jacob MD [address] [address] PCP - General 09/27/09 Radha Mota, RN Electrotype Finisher 06/25/14
--- OUTSIDE RECORDS SUMMARY | 2024-06-21 09:08 | XMS_ITS | Encounter Summary ---
Author Organization [facility] Healthcare Address [address] [place] [address] Care Team Providers Care Last Sawyer Name Role Phone James Jacob MD Primary Care Provider Reason for Visit * Reason Onset Date Comments ready to scheduled 11/08/2021 Encounter Details Date Type Department Care Team (Late st Contact Info) Description 11/08/2021 Telephone [facility] Specialty Services [address] [place] [address] Miscellaneous, Not In File ready to scheduled Social History Tobacco Use Types Packs/Day Years Used Date Smoking Tobacco: Former Cigarettes 1 4 - 1978 Smokeless Tobacco: Never Alcohol Use Standard Drinks/Week Comments Not Currently 0 (1 standard drink = 0.6 oz pur e alcohol) Sex and Gender Information Value Date Recorded Sex Assigned at Not on file Legal Sex Male 1:22 AM ARMATURE WINDER REPAIRER Gender Identity Male 01/16/2023 5:56 PM ARMATURE WINDER REPAIRER Sexual Orientation Not on file documented as of this encounter Plan of Treatment Scheduled Procedures Name Priority Associated Diagnoses Date/Ti va COLONOSCOPY History of colon polyps COLONOSCOPY Diarrhea, unspecified type Constipation, unspecified constipation type documented as of this encounter Visit Diagnoses Not on filedocumented in this encounter Care Teams Last Sawyer Relationship Specialty Start Date End Date James Jacob MD [address] [facility] [address] [place] [address] PCP - General 06/26/16 documented as of this encounter
--- OUTSIDE RECORDS SUMMARY | 2024-06-21 09:08 | XMS_ITS | CONTINUITY OF CARE DOCUMENT ---
Author Name balbir mcgregor Address Unknown Organization [facility] Address [address] [place] [address] [address], [place] [address] Phone [phone] Care Team Providers Care Asphalt Smoother Name Role Phone Eduardo PALMER, Konstantin Unavailable DEISY SPICER MD Unavailable [phone] DEISY SPICER MD Unavailable INSURANCE PROVIDERS Payer name Policy type / Coverage type [place] red green party ID [facility] [employer] [place] [id number]
--- OUTSIDE RECORDS SUMMARY | 2024-06-21 09:08 | XMS_ITS | Encounter Summary ---
Author Organization [facility] Address [address] [place] [address] Phone Care Team Providers Care Web Designer Name Role Phone James Jacob MD Primary Care Provider [phone] Encounter Details Date Type Department Care Team (Late st Contact Info) Description 04/01/2018 Orders Only [facility] Scanning, Provider Social History Tobacco Use Types Packs/Day Years Used Date Smoking Tobacco: Former Smokeless Tobacco: Never Sex and Gender Information Value Date Recorded Sex Assigned at Not on file Legal Sex Male 1:22 AM TOOLING ENGINEER Gender Identity Male 01/16/2023 5:56 PM TOOLING ENGINEER Sexual Orientation Not on file documented as of this encounter Plan of Treatment Scheduled Procedures Name Priority Associated Diagnoses Date/Ti me COLONOSCOPY History of colon polyps COLONOSCOPY Diarrhea, unspecified type Constipation, unspecified constipation type documented as of this encounter Procedures Procedure Name Priority Date/Time Associated Diagnosis Comments SCAN - PATHOLOGY 04/01/2018 documented in this encounter Results * SCAN - PATHOLOGY (04/01/2018) us Provider Scanning Final Result documented in this encounter Visit Diagnoses Not on filedocumented in this encounter Additional Health Concerns Infection Onset Date Last Indicated Resolved Time COVID: Suspected 09/08/2019 09/08/2019 09/09/2019 2:27 PM CDT Respiratory Infection (ABEL), contact + droplet Comment:Automatically added due to negative COVID-19 result. 09/09/2019 09/09/2019 09/23/2019 3:0 5 AM CDT documented as of this encounter Care Teams Web Designer Relationship Specialty Start Date End Date James Jacob MD [address] [facility] [address], [place] [address] PCP - General 06/26/16 documented as of this encounter
--- OUTSIDE RECORDS SUMMARY | 2024-06-21 09:08 | XMS_ITS | Encounter Summary ---
Author Organization [facility] Address [address] [place] [address] Phone Care Team Providers Care Medical Accounts Receivable Specialist Name Role Phone James Jacob MD Primary Care Provider [phone] Encounter Details Date Type Department Care Team (Late st Contact Info) Description 04/23/2024 Results Follow-Up [facility] Endocrinology Metabolism and Lipid [address] [facility] [address] 5th [place] [address] [place] [address] Niru Myles MD [address] [facility] [address] [place] [address] Social History Tobacco Use Types Packs/Day Years Used Date Smoking Tobacco: Former Cigarettes 1 4 1978 Smokeless Tobacco: Never Alcohol Use Standard [...] on file Legal Sex Male 1:22 AM HEEL SANDER Gender Identity Male 01/16/2023 5:56 PM HEEL SANDER Sexual Orientation Not on file documented as of this encounter Miscellaneous Notes * Result Encounter Note - Niru Myles MD - 04/23/2024 6:55 AM HEEL SANDER Dear Jad Moran Jr. Attached is your lab/radiology work, will discuss during your upcoming appointment. Please let me know if you have any questions or concerns. Niru Baker MD Endocrinology SANDER documented in this encounter Plan of Treatment Scheduled Procedures Name Priority Associated Diagnoses Date/Ti me COLONOSCOPY History of colon polyps COLONOSCOPY Diarrhea, unspecified type Constipation, unspecified constipation type documented as of this encounter Visit Diagnoses Not on filedocumented in this encounter Care Teams Medical Accounts Receivable Specialist Relationship Specialty Start Date End Date James Jacob MD [address] [address] PCP - General 06/26/16 documented as of this encounter
--- OUTSIDE RECORDS SUMMARY | 2024-06-21 09:10 | XMS_ITS | CONTINUITY OF CARE DOCUMENT ---
Author Name balbir mcgregor Address Unknown Organization [facility] Address [address] [place] [address] [address], [place] [address] Phone [phone] Care Team Providers Care Electric Meter Repairer Apprentice Name Role Phone Eduardo PALMER, Konstantin Unavailable [phone] DEISY SPICER MD Unavailable DEISY SPICER MD Unavailable INSURANCE PROVIDERS Payer name Policy type / Coverage type [place] red democrat ID [facility] [id number]
[2024-06-21 09:17] VITALS: BP 129/79; PULSE 69; RESP 18; TEMP 36.3; O2SAT 99
== END 2024-06-21 09:30 | disposition home or self-care (01) ==
PROVIDERS: Emergency Provider Nurse Practitioner Family; PCP Internal Medicine
DX: J30.89 Other allergic rhinitis (principal); H10.32 Unspecified acute conjunctivitis, left eye; I10 Essential (primary) hypertension; E78.00 Pure hypercholesterolemia, unspecified; M19.90 Unspecified osteoarthritis, unspecified site; E11.9 Type 2 diabetes mellitus without complications; Z95.5 Presence of coronary angioplasty implant and graft
CPT/HCPCS: 99213; G0463